=== PATIENT | female | born 1950 | race Caucasian/White ===

== ENCOUNTER 2019-10-08 12:15 | Outpatient (CLI) | payer OTHER, MEDICARE ==
--- NOTE | 2019-10-08 12:41 | RAD ---
XR Thoracic Spine 3 V STANDARD: 10/08/2019 12:00 AM CLINICAL INDICATION: Pain COMPARISON: None. FINDINGS: Fracture:No fracture. Arthropathy:Multilevel endplate degenerative change is present. Incidental note of cervical spondylosis. Incidental findings:None of significance. IMPRESSION: 1. Mild multilevel degenerative change of thoracic spine. No acute compression fracture.
== END 2019-10-08 12:16 | disposition home or self-care (01) ==
LOC: SCSRAD 12:15
PROVIDERS: ATTEND Family Medicine
DX: M54.6 Pain in thoracic spine (principal); M47.814 Spondylosis without myelopathy or radiculopathy, thoracic region
CPT/HCPCS: 72072